=== PATIENT | female | born 1970 | race Caucasian/White ===

== ENCOUNTER → 2024-08-06 19:30 | Outpatient (REF) | payer BC, SELFPAY | LOC: WDC 19:30 | PROVIDERS: ATTENDING PHYSICIAN Obstetrics & Gynecology Gynecologic Oncology | DX: Z12.31 Encounter for screening mammogram for malignant neoplasm of breast (principal) | CPT/HCPCS: 77063; 77067 ==

== ENCOUNTER → 2025-08-07 18:36 | Outpatient (REF) | payer BC, SELFPAY | LOC: WDC 18:36 | DX: Z12.31 Encounter for screening mammogram for malignant neoplasm of breast (principal) | CPT/HCPCS: 77063; 77067 ==